=== PATIENT | female | born 1965 | race Caucasian/White ===

== ENCOUNTER → 2019-09-07 08:39 | Outpatient (CLI) | payer OTHER, SELFPAY ==
--- NOTE | ~2019-09-07 | MMUS_ITS ---
EXAMINATION: MM diagnostic mammo BI, US breast BI limited HISTORY: Bilateral asymmetry and right architectural distortion suggested on screening mammogram of TECHNIQUE: Bilateral rolled medial and lateral craniocaudal views. Additional 3-D tomosynthesis image s of both breasts were performed and synthetic 2-D images were generated. CAD analysis was submitted and interpreted. High resolution bilateral upper outer and lower-outer breast ultrasound was performe d. COMPARISON: 08/25/2019 bilateral digital screening mammogram 05/19/2018 diagnostic right digital mammogram 05/14/2018, 06/26/2016, 04/13/2015 bilateral digital screening mammogram examinations bilateral digital screening mammogram FINDINGS: MAMMOGRAPHIC FINDINGS: No definite reproducible mass or architectural distortion of either breast is detected. ULTRASOUND: Right breast: 12:00 3 cm from nipple: 2.8 x 1.8 x 2.9 mm sonolucency without shadowing or color flow signal 12:00 subareolar area: 3.3 x 2.8 x 4.4 mm sonolucency without color flow signal or posterior shadowin g Left breast: 12:00 4 cm from nipple: 4.2 x 6.2 x 6.3 mm hypoechoic circumscribed lesion without internal vasculari ty or posterior shadowing 1:00 4 cm from nipple: 4.3 x 2.9 x 4.1 mm circumscribed hypoechoic lesion without internal vascularit y or posterior shadowing 1:00 4 cm from nipple: 3 subcentimeter hypoechoic circumscribed lesions without internal vascularity or posterior shadowing IMPRESSION: 1. No mammographic evidence of malignancy 2. Routine mammographic screening follow up annually is recommended BI-RADS Category 2: Benign finding(s). Reviewed, dictated and finalized at location A. IX SYSTEMS ADMINISTRATOR IMPRESSION: 1. No mammographic evidence of malignancy 2. Routine mammographic screening follow up annually is recommended BI-RADS Category 2: Benign finding(s).
== END ==
PROVIDERS: PCP Emergency Medicine; Visit Provider Emergency Medicine
DX: R92.8 Other abnormal and inconclusive findings on diagnostic imaging of breast (principal)
CPT/HCPCS: 76642; 77066

== ENCOUNTER 2020-08-14 15:05 | Emergency (ER) | payer OTHER, SELFPAY ==
--- NOTE | ~2020-08-14 | XR_ITS ---
XR foot LT min 3V DATE: 08/14/2020 15:31 INDICATION: Fall. Left foot dorsal and posterior pain TECHNIQUE: 4 views COMPARISON: None FINDINGS: There is prominent plantar and posterior calcaneal enthesopathy. No fracture or dislocation, periosteal reaction or bone destruction. Joint spaces appear relatively w ell preserved. No erosive changes. IMPRESSION: Prominent plantar and posterior calcaneal enthesopathy No fracture or dislocation Reviewed, dictated and finalized at location B. L WIND ENERGY INSTALLER
[2020-08-14 15:22] VITALS: BP 136/69; PULSE 100; RESP 16; TEMP 36.8; O2SAT 100
--- NOTE | 2020-08-14 16:05 | ED.LOWEXIN ---
HPI - Extremity Injury (Lower) General Chief Complaint: Extremity Injury, Lower Stated Complaint: Left foot pain Time Seen by Provider: 08/14/20 15:58 Source: patient and RN notes reviewed Mode of arrival: ambulatory Limitations: no limitations History of Present Illness HPI Narrative: Patient presents today complaining of pain to the bottom of the left foot. States she fell off of a small stool while working at home this morning. Denies numbness or tingling. Currently rates her pain 7/10, which increases to 10/10 with weightbearing. She soaked her foot and took some ibuprofen, which did provide some relief. She has been ambulatory at home, which increases the throbbing in her foot, causing her to stop. MD complaint: foot injury Related Data Home Medications Medication Instructions Recorded Confirmed levothyroxine 08/14/20 trazodone 08/14/20 Allergies Allergy/AdvReac Type Severity Reaction Status Date / Time No Known Allergies Allergy Verified 09/19/16 20:02 Review of Systems Review of Systems: Narrative: CONSTITUTIONAL: Denies body aches, fever, chills, or sweats. EYES: Denies visual changes, redness, or discharge. ENT: Denies rhinorrhea, congestion, sore throat, or otalgia. CARDIOVASCULAR: Denies chest pain, palpitations, or edema. RESPIRATORY: Denies cough or dyspnea. GASTROINTESTINAL: Denies abdominal pain, nausea, vomiting, or diarrhea. GENITOURINARY: Denies dysuria or hematuria. SKIN: Denies rash, itching, or wounds. MUSCULOSKELETAL: Denies back pain, or myalgia.+ Left foot pain NEUROLOGIC: Denies headache, numbness, tingling, or weakness. PSYCH: Denies depression or anxiety. PMFSH Family History Family History (Updated 09/25/16 @ 11:04 by DOCTOR UNKNOWN) Sibling Diabetes mellitus Mother Carcinoma of colon Father Family history of malignant neoplasm of esophagus Social History Social History Smoking status: Never smoker Alcohol intake: never Comments At time of signature, I have reviewed and agree with nursing past medical, surgical, social and family history unless otherwise noted. Please see nursing chart for further information. There is no relevant family history pertinent to the presenting complaint Exam Narrative: Exam Narrative: GENERAL: Well-appearing, well-nourished, and in no acute distress. HEAD: Normocephalic, atraumatic. EYES: EOMI. No redness or drainage. Conjunctivae normal. ENT: Mucous membranes pink and moist. NECK: Normal AROM. CHEST: No respiratory distress. EXTREMITIES: Left foot: No tenderness to the dorsum of the foot. No edema of the foot. No color change. Very mild tenderness to the arch of the foot. Distal sensation intact. Capillary refill normal. Pedal pulse normal. Full range of motion of the toes and ankle without indication of increased pain. SKIN: Warm, dry, no rash. Capillary refill normal. Normal skin turgor. NEURO: No focal deficits. Alert and oriented x3. Gait steady. PSYCH: Normal affect. No signs of depression or anxiety. Course Vital Signs Vital signs: Vital Signs Temperature 98.2 F 08/14/20 15:22 Pulse Rate 100 08/14/20 15:22 Respiratory Rate 16 08/14/20 15:22 Blood Pressure 136/69 08/14/20 15:22 Pulse Oximetry 100 08/14/20 15:22 Temperature 98.2 F 08/14/20 15:22 Pulse Rate 100 08/14/20 15:22 Respiratory Rate 16 08/14/20 15:22 Blood Pressure 136/69 08/14/20 15:22 Pulse Oximetry 100 08/14/20 15:22 Reviewed. Pt has been instructed to follow up with her PCP regarding her elevated blood pressure today. MDM - Extremity Injury (Lower) Differential Diagnosis Differential diagnosis: Likely ankle sprain and strain, ankle fracture and other (Foot sprain, foot fracture) Imaging Data Radiologist's impression: ITS Impressions Foot X-Ray 08/14/20 15:33 IMPRESSION: Prominent plantar and posterior calcaneal enthesopathy No fracture or dislocation Critical Care Marc
== END 2020-08-14 16:18 | disposition home or self-care (01) ==
PROVIDERS: Emergency Provider Nurse Practitioner; PCP Emergency Medicine
DX: S93.602A Unspecified sprain of left foot, initial encounter (principal); W17.89XA Other fall from one level to another, initial encounter; E03.9 Hypothyroidism, unspecified
CPT/HCPCS: 73630; 99213; G0463

== ENCOUNTER → 2021-06-05 09:35 | Outpatient (CLI) | payer OTHER, SELFPAY ==
--- NOTE | ~2021-06-05 | MM_ITS ---
EXAMINATION: MM screening jose BI w sada HISTORY: Screening mammogram TECHNIQUE: Craniocaudal and mediolateral oblique 3-D tomosynthesis images were obtained and synthetic 2-D images were generated. CAD analysis was submitted and interpreted. COMPARISON: 09/07/2019 bilateral diagnostic mammogram and Limited bilateral breast ultrasound 08/25/2019 bilateral screening mammogram 05/19/2018 diagnostic right mammogram 05/14/2018, 06/26/2016 bilateral digital screening mammogram examinations BREAST PARENCHYMAL COMPOSITION: There are scattered areas of fibroglandular density. FINDINGS: There is no evidence of suspicious mass, calcification, or architectural distortion to sugg est malignancy in either breast. There has been no suspicious interval change. IMPRESSION: 1. No mammographic evidence of malignancy. 2. Recommend routine screening mammography in one year. BI-RADS Category 1: Negative Reviewed, dictated and finalized at location A.
== END ==
PROVIDERS: PCP Emergency Medicine; Visit Provider Nurse Practitioner Obstetrics & Gynecology
DX: Z12.31 Encounter for screening mammogram for malignant neoplasm of breast (principal)
CPT/HCPCS: 77063; 77067

== ENCOUNTER → 2022-09-05 11:50 | Outpatient (CLI) | payer BC, SELFPAY ==
--- NOTE | ~2022-09-05 | MM_ITS ---
EXAMINATION: MM screening jose BI w sada HISTORY: Screening TECHNIQUE: Craniocaudal and mediolateral oblique 3-D tomosynthesis images were obtained and synthetic 2-D images were generated. CAD analysis was submitted and interpreted. COMPARISON: Comparison to multiple prior studies sequentially, with oldest reviewed study dated 06/10. BREAST PARENCHYMAL COMPOSITION: There are scattered areas of fibroglandular density. FINDINGS: There is no evidence of suspicious mass, calcification, or architectural distortion to sugg est malignancy in either breast. There has been no suspicious interval change. IMPRESSION: 1. No mammographic evidence of malignancy. 2. Recommend routine screening mammography in one year. BI-RADS Category 1: Negative Reviewed, dictated and finalized at location A. IFICATION OFFICER
== END ==
PROVIDERS: PCP Emergency Medicine; Visit Provider Emergency Medicine
DX: Z12.31 Encounter for screening mammogram for malignant neoplasm of breast (principal)
CPT/HCPCS: 77063; 77067